=== PATIENT | female | born 1975 | race Caucasian/White ===

== ENCOUNTER → 2016-12-20 | Day surgery (SDC) | payer OTHER ==
[2016-12-14 13:56] VITALS: Ht 160 cm; Wt 133.4 kg
--- NOTE | 2016-12-14 14:27 | PAT Medication Instructions ---
Service Date Dec 14, 2016. Current Home Medication List Buspirone Hcl (Buspar), 10 MG PO BID Citalopram Hydrobromide (Citalopram Hydrobromide), 1 TAB PO HS Clonazepam (Klonopin), 1 MG PO QAM Cyanocobalamin (Vitamin B12 500MCG), 500 MCG PO QAM Diclofenac (Voltaren), 75 MG PO BID Gabapentin (Neurontin), 300 MG PO TID Melatonin (Kp Melatonin), 1 TAB PO HS Omeprazole (Prilosec), 40 MG PO BID Ropinirole (Requip), 7.5 MG PO HS Medication Instructions For Your Scheduled Surgery - Hold the following medications evening prior to surgery: Ropinirole (Requip), 7.5 MG PO HS - Hold the following medications the morning of surgery: Cyanocobalamin (Vitamin B12 500MCG), 500 MCG PO QAM Diclofenac (Voltaren), 75 MG PO BID (not told to stop by surgeon) - Take the following medications the morning of surgery with a sip of water: Omeprazole (Prilosec), 40 MG PO BID Gabapentin (Neurontin), 300 MG PO TID (if needed) Clonazepam (Klonopin), 1 MG PO QAM Buspirone Hcl (Buspar), 10 MG PO BID - Take the following medications as scheduled the night before surgery: Omeprazole (Prilosec), 40 MG PO BID Melatonin (Kp Melatonin), 1 TAB PO HS Gabapentin (Neurontin), 300 MG PO TID Citalopram Hydrobromide (Citalopram Hydrobromide), 1 TAB PO HS Buspirone Hcl (Buspar), 10 MG PO BID If you have any questions please call us at [phone] or [phone] ( [facility]) or [phone]
[2016-12-14 14:53] LABS: HEMATOCRIT 39.5 % (37-47); MEAN CELL VOLUME 90.6 fL (80-100); MEAN CORPUSCULAR HEMOGLOBIN 31.7 pg (25-34); MEAN CORPUSCULAR HGB CONC 34.9 g/dl (32-36); MEAN PLATELET VOLUME 9.6 fL (7.4-10.4); PLATELET COUNT 268 K/uL (130-400); RED BLOOD COUNT 4.36 M/uL (4.2-5.4); WHITE BLOOD COUNT 11.25 K/uL (4.8-10.8)
[2016-12-14 15:12] LABS: BUN/CREATININE RATIO 16.3 (10-20); CALCIUM 8.9 mg/dl (8.5-10.1); CREATININE 0.73 mg/dl (0.60-1.20); POTASSIUM 3.7 mmol/L (3.5-5.1)
[~2016-12-20] VITALS: Ht 160 cm; Wt 133.4 kg
[~2016-12-20] MED LIST: ATROPINE SULFATE 0.1 MG/ML 5ML SYR IV PRN; BUPIVACAINE 0.5 % 5 MG/1 ML MPF 30ML VIAL ONE; BUSP15TA70 PO; CEFAZOLIN 3000 MG/65 ML D5W IV SCH; CITA20TA4 PO; CLON1TAB3 PO; CYAN500T13 PO; DEXAMETHASONE SOD INJ 4 MG/ML VIAL ONE; DICL-201 PO; EpHEDrine SULFATE INJ 50 MG/ML AMP IV PRN; FENTANYL CITRATE INJ 50 MCG/1 ML 2 ML VIAL IV PRN; FENTANYL CITRATE INJ 50 MCG/1 ML 2 ML VIAL ONE; GABA-113 PO; HYDR-5688 PO; KETOROLAC TROMETHAMINE 30 MG/ML VIAL ONE; LACTATED RINGER'S 1000ML 1,000 ML IV SCH; LIDOCAINE HCL 2% 2 ML VIAL (20MG/ML) ONE; LIDOCAINE MPF 1% INJ 30 ML SDV (L&D) INFIL ONE; MELA1TAB5 PO; MIDAZOLAM HCL 1 MG/ML 2ML VIAL ONE; ONDANSETRON INJ 2 MG/ML 2 ML VIAL IV PRN; ONDANSETRON INJ 2 MG/ML 2 ML VIAL ONE; OXYCODONE/ACETAMINOPHEN 5-325 TAB PO PRN; PRLSR20 PO; PROPOFOL IV EMULSION 10 MG/ML 20 ML VIAL IV ONE; ROPI5TAB PO; SODIUM CHLORIDE 0.9% 1000ML 1,000 ML IV SCH
--- NOTE | 2016-12-20 06:45 | History & Physical Bridge - SC ---
H&P Re-Evaluation Bridge Note: I have examined the patient, reviewed the History & Physical and in the interval since the performance of the History & Physical I have noted the following changes of clinical significance: No changes noted
--- NOTE | 2016-12-20 07:31 | [facility] Post Operative Brief Note ---
Immediate Operative Summary Operative Date Dec 20, 2016. Pre-Operative Diagnosis Left Elbow Cubital Tunnel Syndrome Post-Operative Diagnosis Same Procedure(s) Performed Left Elbow Ulnar Nerve Decompression Surgeon Dr. Muir Merchandise Marker Surgeon(s) Lolita Li PA-C Estimated Blood Loss None Findings ABOVE Specimens None Anesthesia LMA Complication(s) None Disposition Recovery Room / PACU
--- NOTE | 2016-12-20 07:40 | Discharge Instructions-SurgCtr ---
Discharge Instructions Visit Reason for Visit: Left Elbow Cubital Tunnel Syndrome, Osteoarthritis Discharge Discharge Diagnosis / Problem: SAME ABOVE Discharge Goals Goal(s): Decrease discomfort, Improve function Activity Recommendations Activity Limitations: as noted below Lifting Limitations: until after follow-up appointment Exercise/Sports Limitations: until after follow-up appointment Shower/Bathe: keep incision dry Anesthesia . Post Anesthesia Instructions: If you have had General Anesthesia or IV Sedation: * Do not drive today. * Resume driving when surgeon permits. * Do not make important decisions or sign legal documents today. * Call surgeon for: 1. Temperature elevations greater than 101 degrees F. 2. Uncontrollable pain. 3. Excessive bleeding. 4. Persistent nausea and vomiting. 5. Medication intolerance (nausea, vomiting or rash). * For nausea and vomiting use only clear liquids such as: tea, soda, bouillon until nausea subsides, then gradually increase diet as tolerated. * If you have any concerns or questions, call your surgeon's office. If physician is unavailable and it is an emergency, call 911 or go to the nearest emergency room. . Instructions / Follow-Up Instructions / Follow-Up MEDICATIONS: * Resume previous medications unless instructed otherwise by your surgeon. * Always take pain medication on a full stomach or with food to avoid upset stomach. * Do not drink alcohol or drive while taking narcotics. * Ibuprofen or Tylenol may be taken if narcotic not needed. SPECIAL CARE INSTRUCTIONS: __ None _X_ Keep extremity elevated and iced x 48 hours; apply ice 20-30 minutes 8-10 times/day. May remove at night. _X_ Sling __24 hrs/day _X_ Remove at night __ Shoulder Immobilizer __ 24 hrs/day __ Remove at night _X_ Dressing _X_ Maintain until seen in office, may shower with plastic over site __ Remove dressings in 24-48 hours and then may shower __ Cover incisions with band-aids after showering __ Do not remove steri-strips Call physician if chills or temperature rises above 102 degrees or pain unrelieved by prescribed pain medications at . . Procedures Procedures Performed: Left Elbow Ulnar Nerve Decompression Pending Studies Studies pending at discharge: no Medical Emergencies . Who to Call and When: Medical Emergencies: If at any time you feel your situation is an emergency, please call 911 immediately. . Non-Emergent Contact Non-Emergency issues call your: Primary Care Provider . . "Provider Documentation" section prepared by Woo Li.
--- NOTE | 2016-12-20 08:02 | OPERATIVE REPORT ---
DATE OF OPERATION: 12/20/2016 PREOPERATIVE DIAGNOSIS: Left ulnar nerve entrapment, elbow. POSTOPERATIVE DIAGNOSIS: Same. PROCEDURE: Decompression ulnar nerve, left elbow. SURGEON: Dr. Muir. LEARNING COACH: oWo Li PA-C. ANESTHESIOLOGIST: Dr. Perez. ANESTHESIA: LMA. DRAINS: None. COMPLICATION: None. CONDITION: The patient tolerated the procedure well and returned to the recovery room in apparent satisfactory condition. INDICATIONS FOR SURGERY: Luana is a 41-year-old female who has had increasing complaints and symptoms of an ulnar nerve entrapment of the left elbow. We went over treatment options, elected to go ahead and proceed with surgery. Procedure, expected outcomes and side effects were all explained in detail in the office. We talked at length about the recovery of this nerve and location and normally the nerve takes 0.1 mm a day to recover and then for her to recover sensation in her fingertips. She understands there could be some permanent numbness around the incision site also. PROCEDURE IN DETAIL: The patient was taken to the OR at which time she was placed supine on the operating table and put to sleep by anesthesia department. Left arm was prepped and draped in usual sterile fashion for this surgery. She had a large size arm, we made sure we had a tourniquet on forearm from the axilla. We then prepped and draped in usual sterile fashion. I exsanguinated the arm, put the axilla tourniquet to 250 mmHg. We then made a curvilinear incision between the medial epicondyle and olecranon process and dissected down and identified the nerve. We could see it was impinged right at the flexion portion of the elbow. Very carefully we decompressed it both proximally and distally. We did not lift it out of its bed. We took it through range of motion and did not subluxate. It was significantly less compressed once we removed the constricting tissue. The wound then was copiously irrigated. It was closed with 2-0 Vicryl suture and skin fidencio. Marcaine without epinephrine was placed in skin edges, then placed a sterile dressing of Xeroform, 4 x 4, Sof-Rol and posterior splint, and returned back to recovery room in apparent satisfactory condition. I attest to the content of the Intraoperative Record and any orders documented therein. Any exceptio ns are noted below.
[2016-12-20 08:27] VITALS: TEMP 36.7
--- NOTE | 2016-12-20 08:32 | Anesthesia Progress Nt - [facility] ---
Anesthesia Post Op Note Date & Time Dec 20, 2016 at 08:32 Vital Signs Pain Intensity: 5 Vital Signs Past 12 Hours Date Time Temp Pulse Resp B/P Pulse Ox O2 Delivery O2 Flow Rate FiO2 12/20/16 08:27 36.7 67 16 116/80 94 Room Air 12/20/16 08:16 74 17 12/20/16 08:16 74 17 95 12/20/16 08:13 126/87 12/20/16 08:11 73 15 94 12/20/16 08:11 74 15 12/20/16 08:10 36.4 80 16 139/79 96 Room Air 12/20/16 08:08 139/79 12/20/16 08:06 73 10 12/20/16 08:06 72 10 95 12/20/16 08:03 137/90 12/20/16 08:01 72 20 99 12/20/16 08:01 73 20 12/20/16 07:59 123/83 12/20/16 07:56 78 20 99 12/20/16 07:56 78 20 12/20/16 07:53 137/84 12/20/16 07:51 78 18 12/20/16 07:51 77 18 98 12/20/16 07:49 137/81 12/20/16 07:46 82 13 12/20/16 07:46 82 13 97 12/20/16 07:44 140/76 12/20/16 07:41 36.4 82 16 141/73 96 Diffusion Mask 6 12/20/16 07:41 81 20 12/20/16 07:41 81 20 95 12/20/16 06:27 36.7 79 16 142/92 96 Room Air Notes Mental Status: alert / awake / arousable, participated in evaluation Pt Amnestic to Procedure: Yes Nausea / Vomiting: adequately controlled Pain: adequately controlled Airway Patency, RR, SpO2: stable & adequate BP & HR: stable & adequate Hydration State: stable & adequate Anesthetic Complications: no major complications apparent
[2016-12-20 08:52] VITALS: BP 118/75; PULSE 75; O2SAT 96
== END | disposition home or self-care (01) ==
LOC: X.SURG 06:11
PROVIDERS: ATTEND Orthopaedic Surgery
DX: G56.22 Lesion of ulnar nerve, left upper limb (principal); K21.9 Gastro-esophageal reflux disease without esophagitis; F41.9 Anxiety disorder, unspecified; M79.7 Fibromyalgia; G25.81 Restless legs syndrome; F17.210 Nicotine dependence, cigarettes, uncomplicated